=== PATIENT | female | born 1960 | race Caucasian/White ===

== ENCOUNTER 2020-02-22 08:09 | Emergency (ER) | payer OTHER, BC, SELFPAY ==
--- NOTE | ~2020-02-22 | XR_ITS ---
EXAMINATION: XR knee RT 2V INDICATION: Right knee pain TECHNIQUE: Two views of the right knee are obtained. COMPARISON: None available FINDINGS: There is no fracture. There is tricompartmental osteoarthritis, moderate in the medial comp artment and severe in the patellofemoral compartment. The soft tissues are unremarkable. There is no joint effusion. IMPRESSION: 1. No acute osseous abnormality. Reviewed, dictated and finalized at location A.
--- NOTE | ~2020-02-22 | CT_ITS ---
EXAMINATION: CT abdomen pelvis w con INDICATION: Left flank pain after fall TECHNIQUE: Computed tomographic images of the abdomen and pelvis were obtained after the administrati on of 100 cc of Omnipaque 350 intravenous contrast. The dose-length product (DLP) was 1127.62 mGy-cm. Automated exposure control and iterative reconstruction technique were employed. COMPARISON: None available FINDINGS: The lung bases are clear. The heart size is normal. The gallbladder is surgically absent. Punctate ca lcifications in an otherwise normal spleen likely represent healed granulomatous disease. The liver, pancreas, and adrenal glands are normal. The kidneys are unremarkable. There is a soft tissue hematom a of the left flank. No pathologically enlarged abdominal or pelvic lymph nodes are identified. There is no free intraperitoneal gas or evidence of bowel obstruction. There is mild lumbar spondylosis. T here is a tiny fat-containing umbilical hernia. IMPRESSION: 1. Soft tissue hematoma of the left flank without acute abnormality of the abdomen or pelvis. Reviewed, dictated and finalized at location A. IMPRESSION: 1. Soft tissue hematoma of the left flank without acute abnormality of the abdo men or pelvis.
--- NOTE | ~2020-02-22 | XR_ITS ---
EXAMINATION: XR knee LT 2V INDICATION: Left knee pain TECHNIQUE: Two views of the left knee are obtained. COMPARISON: None available FINDINGS: There is no fracture. There is moderate tricompartmental osteoarthritis. A small joint effu katrina is noted. There is calcified atherosclerosis. IMPRESSION: 1. No acute osseous abnormality. Reviewed, dictated and finalized at location A.
[2020-02-22 08:15] VITALS: BP 144/63; PULSE 84; RESP 19; TEMP 37.1; O2SAT 96
--- NOTE | 2020-02-22 08:49 | ED.FALL ---
HPI - Fall General Chief Complaint: Fall Stated Complaint: fell in bathroom Time Seen by Provider: 02/22/20 08:23 History of Present Illness HPI Narrative: Patient presents with her daughter after falling in the bathroom this morning. She was getting into the shower and she grabbed the handrail slipped and fell. She injured her left upper arm, both knees, and her left flank. She had no loss of consciousness did not hit her head. She said her knee pain is 5-7, her elbow does not hurt, and her flank is moderate pain. She was unable to get up and called her daughter who had to call 911. she was getting ready for work. 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 She does not smoke drink or do drugs. She has diabetes and hypertension. complaint: fall Onset (ago): hour(s) Fall from: standing Fall witnessed: no Place fall occurred: home Loss of consciousness: none Symptoms prior to fall: none Context: tripped/slipped Location of injury: back Location of injury - extremities: Left: arm and Bilateral: knee Severity: moderate Severity scale (1-10): 5 Associated symptoms (after fall): denies Related Data Home Medications Medication Instructions Recorded Confirmed aspirin 81 mg tablet,delayed 81 mg PO DAILY 09/09/19 09/27/19 release atorvastatin 80 mg tablet 80 mg PO DAILY 09/09/19 09/27/19 escitalopram oxalate 5 mg tablet 5 mg PO DAILY 09/09/19 09/27/19 famotidine 20 mg tablet 20 mg PO DAILY 09/09/19 09/27/19 lisinopril 10 1 tablet PO DAILY 09/09/19 09/27/19 mg-hydrochlorothiazide 12.5 mg tablet metformin 500 mg tablet 500 mg PO BID 09/27/19 09/27/19 apixaban [Eliquis] mg 02/22/20 Allergies Allergy/AdvReac Type Severity Reaction Status Date / Time No Known Allergies Allergy Verified 02/22/20 09:59 Review of Systems Review of Systems: Narrative: CONSTITUTIONAL: Denies fever, chills, or sweats. EYES: Denies visual changes, redness, or discharge. ENT: Denies rhinorrhea, congestion, sore throat, or otalgia. CARDIOVASCULAR: Denies chest pain, palpitations, or edema. RESPIRATORY: Denies cough or dyspnea. GASTROINTESTINAL: Denies abdominal pain, nausea, vomiting, or diarrhea. GENITOURINARY: Denies dysuria or hematuria. SKIN: Denies rash or itching. MUSCULOSKELETAL: Denies back pain, or myalgia. NEUROLOGIC: Denies headache, numbness, or weakness. PSYCHIATRIC: Denies anxiety or depression. PMFSH Past Medical History Medical History (Updated 02/22/20 @ 08:55 by Lacy Boateng MD) Arthritis Elevated lipids Headache, migraine Heart murmur Hypertension Stroke Thyroid disease Surgical History Surgical History History of cataract extraction History of cholecystectomy History of loop recorder History of parathyroid surgery History of tubal ligation Family History Family History (Updated 04/09/18 @ 09:58 by DOCTOR UNKNOWN) Father Acute myocardial infarction Mother Acute myocardial infarction Social History Social History (Updated 02/22/20 @ 08:53 by Lacy Boateng MD) Smoking status: Never smoker Alcohol intake: never Substance use: never Exam Narrative: Exam Narrative: GENERAL: Well-appearing, well-nourished, and in no acute distress. HEAD: Normocephalic, atraumatic. EYES: PERRLA left eye with exotropia. ENT: Nares clear, no rhinorrhea or epistaxis. Mucous membranes moist. NECK: Supple. CHEST: Clear to auscultation. No respiratory distress. HEART: Regular rate and rhythm. No murmur heard. Normal peripheral pulses. ABDOMEN: Soft, nondistended, normal active bowel sounds. 3 inch bruise on the left flank, which is tender. EXTREMITIES: 2 inch bruise on the left upper arm, right knee with small abrasion no bruise, left knee with small abrasion and 1 inch bruise. SKIN: Warm, dry, no rash. NEURO: No focal deficits. Alert and oriented x3. PSYCH: Normal mood and affect. Const: General:
[2020-02-22 09:08] LABS: Basophils Absolute Auto 0.1 K/mm3 (0.0-0.1); Basophils Percent Auto 0.6 % (0.2-1.2); Eosinophils Absolute Auto 0.3 K/mm3 (0-0.3); Eosinophils Percent Auto 2.8 % (0-4.4); Hematocrit 40.2 % (37.0-47.0); Hemoglobin 12.9 g/dL (12.0-15.0); Immature Granulocyte Absolute 0.13 K/mm3 (0.00-0.031); Immature Granulocyte Percent A 1.2 % (0-0.5); Lymphocytes Absolute Auto 0.99 K/mm3 (0.9-3.2); Lymphocytes Percent Auto 9.1 % (18.3-44.2); Mean Corpuscular HGB Conc 32.1 g/dl (32-36); Mean Corpuscular Hemoglobin 28.2 pg (26-34); Mean Corpuscular Volume 87.8 fl (80-100); Mean Platelet Volume 10.1 fl (7.4-10.4); Monocytes Absolute Auto 0.6 K/mm3 (0.1-0.6); Monocytes Percent Auto 5.6 % (2.6-8.5); Neutrophils Absolute Auto 8.7 K/mm3 (1.3-6.7); Neutrophils Percent Auto 80.7 % (45.5-73.1); Platelet Count Result 194 k/mm3 (150-375); Red Blood Count 4.58 M/mm3 (4.2-5.4); White Blood Count 10.8 K/mm3 (4.5-10.0)
[2020-02-22] MEDS: SODIUM CHLORIDE 0.9% IV 1,000 ML 500 ML IV CONT (09:09)
[2020-02-22 09:21] LABS: Alanine Aminotransferase 18 U/L (4-35); Albumin Level 4.2 g/dL (3.5-5.1); Alkaline Phosphatase 112 U/L (38-126); Aspartate Amino Transferase 21 U/L (14-36); Bilirubin,Total 0.4 mg/dL (0.2-1.3); Blood Urea Nitrogen 15 mg/dL (7-17); Calcium 9.2 mg/dL (8.4-10.2); Carbon Dioxide 23 mmol/L (22-30); Chloride 103 mmol/L (98-107); Estimated CRCL calculation 96 ml/min; Estimated Glomerular Filt Rate > 60; Glucose 263 mg/dL (65-105); Potassium 3.7 mmol/L (3.4-5.0); Sodium 138 mmol/L (137-145)
[2020-02-22 10:00] VITALS: BP 127/56; PULSE 83; RESP 16; O2SAT 97
[2020-02-22] MEDS: MORPHINE SULFATE 2 MG/ML INJ IV PUSH (10:11)
[2020-02-22 11:00] VITALS: BP 136/57; PULSE 77; RESP 16; O2SAT 98
[2020-02-22 11:40] VITALS: BP 130/68; PULSE 80; RESP 18; O2SAT 99
== END 2020-02-22 11:41 | disposition home or self-care (01) ==
PROVIDERS: Emergency Provider Emergency Medicine; PCP Internal Medicine
DX: R10.9 Unspecified abdominal pain (principal); M25.562 Pain in left knee; M25.561 Pain in right knee; W18.2XXA Fall in (into) shower or empty bathtub, initial encounter
CPT/HCPCS: 36415; 73560; 74177; 80053; 85025; 96361; 96374; 99284; J2270; J7030; Q9967

== ENCOUNTER 2023-05-04 08:25 | Outpatient (CLI) | payer OTHER, SELFPAY ==
--- NOTE | ~2023-05-04 | NM_ITS ---
EXAMINATION: NM colleen stress w perfusion DATE: 05/04/2023 10:30 INDICATION: Other forms of dyspnea TECHNIQUE: Rest images were obtained following intravenous administration of 10.7 mCi Tc99m tetrofosm in (Myoview). The patient was infused intravenously with Lexiscan (Regadenoson). Then, 33.6 mCi Tc99m tetrofosmin (Myoview) was administered intravenously, and stress images were obtained. Data was rob nstructed into short axis and horizontal and vertical long axis SPECT images. Gated SPECT images were also obtained. COMPARISON: None. FINDINGS: There is no definite reversible or fixed perfusion abnormality to suggest ischemia or infar ction. There is normal left ventricular chamber size, wall motion and ejection fraction. Left ventr icular ejection fraction measures >70%. IMPRESSION: 1. Normal myocardial perfusion at rest and during stress. 2. Left ventricular ejection fraction measuring >70%. Reviewed, dictated and finalized at location A.
--- NOTE | 2023-05-04 08:38 | EST_ITS ---
Patient Info Name: Ellie Boone Age: 63 years : 1960 Gender: Female Ht: 66 in Wt: 180 lbs BSA: 1.97 m2 HR: 74 bpm BP: 133 / 66 mmHg Heart Rhythm: Sinus Rhythm Exam Date: 05/04/2023 9:32 AM Exam Location: [facility] Stress Patient Status: Outpatient Admit Date: 05/04/2023 Staff Ordering Physician: Saroj Mixon DO Attending Provider: Saroj Mixon DO Referring Physician: Bryant, Chalino Ring DO; Exercise Technologist: Desiree Funes CT Exercise Physician: Saroj Mixon DO Exam Type: CA stress colleen w NM Study Info Indications Z01.810 - Encounter for preprocedural cardiovascular examination R06.09 - Other forms of dyspnea A regadenoson stress test was performed. Summary 1. 1. Negative lexiscan stress test for ischemic ST changes by ECG criteria. 2. 2. Stable hemodynamics throughout the test. 3. 3. Nuclear scan to follow and will be reported separately. Please correlate with it. 4. 4. Patient informed of the above results. Protocol: Lexiscan Stress ECG Details Stage: REST Duration (min): 2 min : 9 sec HR (bpm): 73 SBP (mmHg): 133 DBP (mmHg): 66 Stage: REST Duration (min): 11 min : 13 sec HR (bpm): 74 SBP (mmHg): 133 DBP (mmHg): 66 Stage: STAGE 1 Duration (min): 1 min : 0 sec HR (bpm): 101 SBP (mmHg): 151 DBP (mmHg): 57 Stage: RECOVERY Duration (min): 1 min : 0 sec HR (bpm): 124 SBP (mmHg): 151 DBP (mmHg): 57 Stage: RECOVERY Duration (min): 2 min : 0 sec HR (bpm): 111 SBP (mmHg): 151 DBP (mmHg): 57 Stage: RECOVERY Duration (min): 3 min : 0 sec HR (bpm): 105 SBP (mmHg): 155 DBP (mmHg): 60 Stage: RECOVERY Duration (min): 3 min : 13 sec HR (bpm): 116 SBP (mmHg): 155 DBP (mmHg): 60 Rest HR: 74 bpm Peak HR: 124 bpm Rest Sys BP: 133 mmHg Peak Sys BP: 155 mmHg Max Pred HR: 155 bpm % Max Pred HR: 80 % Target HR: 132 bpm Max RPP: 19,220 bpm*mmHg Termination Reason: Completed protocol Cardiac Symptoms: Shortness of breath Total Time: 1 min : 0 sec Rest Velasquez BP: 66 mmHg Peak Velasquez BP: 60 mmHg Total Dose: 0.4 mg Resting ECG Sinus rhythm. Stress ECG No ST changes. Arrhythmias None. Report Signatures
== END 2023-05-04 08:26 | disposition home or self-care (01) ==
PROVIDERS: PCP Student in an Organized Health Care Education/Training Program; Referring Provider Orthopaedic Surgery; Visit Provider Internal Medicine Cardiovascular Disease
DX: R06.09 Other forms of dyspnea (principal)
CPT/HCPCS: 78452; 93017; A9502